=== PATIENT | female | born 1985 | race Caucasian/White ===

== ENCOUNTER 2017-03-14 18:22 | Emergency (ER) | END 2017-03-14 23:47 | disposition home or self-care (01) | DX: O23.41 Unspecified infection of urinary tract in pregnancy, first trimester (principal); Z3A.01 Less than 8 weeks gestation of pregnancy | CPT/HCPCS: 36415; 76801; 76817; 81001; 84702; 85025; 86900; 86901; Z7502; Z7610 ==

== ENCOUNTER 2017-10-19 16:44 | Inpatient (IN) | END 2017-10-21 14:55 | disposition home or self-care (01) | DRG 775 ==